=== PATIENT | female | born 1990 | race Caucasian/White ===

== ENCOUNTER 2018-07-01 21:29 | Emergency (ER) | payer SELFPAY ==
[~2018-07-01] VITALS: Ht 157.5 cm; Wt 108.9 kg
[2018-07-01 21:48] VITALS: BP 148/83
[2018-07-01] MEDS ORDERED: ACETAMINOPHEN/CODEINE 300/30MG TABLET PO ONE (22:30)
[2018-07-01] MEDS ORDERED: ACET-704 PO (22:32)
--- NOTE | 2018-07-01 22:34 | PHYS DOC ---
Past History Past Medical History: Other Past Surgical History: Tonsillectomy, Other Alcohol Use: None Drug Use: None Adult General Chief Complaint Chief Complaint: KNEE INJURY [facility] HPI Patient is a 28-year-old female who presents with complaint of injury to her right knee when she twisted her knee while going down some steps off of a deck. Patient rates her pain as moderate to severe and states the pain is worsened with weightbearing. She states that she had injured the same knee about a year ago and states that she had a meniscus injury at that time. She states that it had gotten better however. She states that the majority of the pain is medial. Review of Systems Review of Systems Constitutional: Denies fever or chills [] Respiratory: Denies cough or shortness of breath [] Cardiovascular: No additional information not addressed in HPI [] Musculoskeletal: Positive right knee pain [] Neurologic: Denies headache, focal weakness or sensory changes [] Current Medications Current Medications Current Medications Medications (Trade) Dose Ordered Sig/Eduardo Start Time Stop Time Status Last Admin Dose Admin Acetaminophen/ Codeine Phosphate (Tylenol #3) 1 tab 1X ONCE 07/01/18 22:30 07/01/18 22:31 07/01/18 22:13 1 TAB Allergies Allergies Allergies Coded Allergies Type Severity Reaction Last Updated Verified NSAIDS (Non-Steroidal Anti-Inflamma Allergy Intermediate 07/01/18 Yes Penicillins Allergy Intermediate 07/01/18 Yes tramadol Allergy Intermediate 07/01/18 Yes Physical Exam Physical Exam Constitutional: Well developed, well nourished, no acute distress, non-toxic appearance. [] Cardiovascular:Heart rate regular rhythm, no murmur [] Lungs & Thorax: Bilateral breath sounds clear to auscultation [] Extremities: Examination of right knee demonstrates tenderness to palpation along the medial joint line. Unable to fully assess ligamentous status as patient is not able to tolerate due to reported pain. [] Current Patient Data Vital Signs Vital Signs Date Time Temp Pulse Resp B/P (MAP) Pulse Ox O2 Delivery O2 Flow Rate FiO2 07/01/18 22:13 18 Room Air 07/01/18 21:48 97.6 96 97 EKG EKG [] Radiology/Procedures Radiology/Procedures [] Impressions: X-ray of the right knee demonstrates no acute bony abnormalities. Course & Med Decision Making Course & Med Decision Making Pertinent Labs and Imaging studies reviewed. (See chart for details) Patient moved to room upon arrival was evaluated by your medical staff after which an x-ray of the right knee was obtained. Upon reviewing x-ray findings were reviewed with patient. I did offer knee immobilizer with crutches for the patient but patient states that a knee immobilizer hurts her knee more. She also states that she has crutches at home. Patient is requesting an Sriram wrap. Dragon Disclaimer Dragon Disclaimer This electronic medical record was generated, in whole or in part, using a voice recognition dictation system. Departure Departure: Impression: Primary Impression: Right knee sprain Disposition: HOME, SELF-CARE Condition: STABLE Referrals: PCP,DALTON (PCP) CASEY BLAND MD Patient Instructions: Knee Sprain Additional Instructions: Utilize crutches for nonweightbearing as needed for comfort. Follow-up with orthopedist in the next week. Scripts Acetaminophen With Codeine (TYLENOL WITH CODEINE #3 TABLET) 1 Each Tablet 1 TAB PO Q6HRS PRN for PAIN, #12 TAB Prov: JAMARI SCHAFFER Jr., DO 07/01/18 Problem Qualifiers Primary Impression: Right knee sprain Encounter type: initial encounter Involved ligament of knee: unspecified ligament Qualified Codes: S83.91XA - Sprain of unspecified site of right knee , initial encounter JAMARI SCHAFFER Jr., DO Jul 01, 2018 22:34
[2018-07-01] MEDS ORDERED: diphenhydrAMINE HCL 25 MG CAPSULE PO ONE (23:00)
--- NOTE | 2018-07-01 23:42 | RAD ---
EXAM: AP, oblique and lateral views of the right knee DATE: 07/01/2018 10:08 PM INDICATION: Right knee pain after twisting today. Hx meniscus injury. Patient shielded COMPARISON: No Prior FINDINGS: No evidence of acute fracture or dislocation. Joint spaces are preserved without significant degenerative/proliferative change. No right knee joint effusion. IMPRESSION: No evidence of acute fracture or dislocation. Electronically signed by: Michael Fernando MD (07/01/2018 11:39 PM) [facility]
== END 2018-07-01 22:47 | disposition home or self-care (01) ==
LOC: ER 21:29
DX: S83.91XA Sprain of unspecified site of right knee, initial encounter (principal); Z88.6 Allergy status to analgesic agent; Z88.0 Allergy status to penicillin; X50.1XXA Overexertion from prolonged static or awkward postures, initial encounter; Y93.89 Activity, other specified; Y92.89 Other specified places as the place of occurrence of the external cause; Y99.8 Other external cause status
CPT/HCPCS: 73562; 99283; Q0163

== ENCOUNTER 2018-12-17 18:33 | Emergency (ER) | payer SELFPAY ==
[~2018-12-17] VITALS: Ht 157.5 cm; Wt 108.9 kg
[~2018-12-17 18:33] MED LIST: ACET-704 PO
[2018-12-17 18:38] VITALS: BP 134/80
[2018-12-17] MEDS ORDERED: ORPHENADRINE CITRATE 60 MG/2 ML VIAL. IM ONE (19:00)
[2018-12-17] MEDS ORDERED: ORPH-16 PO (19:08)
[2018-12-17] MEDS ORDERED: OXAP600T2 PO (19:08)
--- NOTE | 2018-12-17 19:09 | PHYS DOC ---
Past History Past Medical History: Other Additional Past Medical Histor: bulging disc Past Surgical History: Tonsillectomy, Other Smoking: Non-smoker Alcohol Use: None Drug Use: None Adult General Chief Complaint Chief Complaint: MEDICATION REFILL HPI HPI Patient is a 28-year-old female presents complaining of low back pain. She has long-standing back issues with a bulging disc at L4-5. This morning she tried to move a couch. She has had increased pain since trying to move this couch. She took Tylenol and ibuprofen without any relief. There is no radiation of the discomfort. Increased pain with moving. No trauma. No loss of bowel or bladder control. She denies using any injectable drugs of abuse. Denies any fever. She has had no significant relief with holding still. Pain is moderate to severe.[] Review of Systems Review of Systems Constitutional: Denies fever or chills [] Eyes: Denies change in visual acuity, redness, or eye pain [] HENT: Denies nasal congestion or sore throat [] Respiratory: Denies cough or shortness of breath [] Cardiovascular: No chest pain or palpitations[] GI: Denies abdominal pain, nausea, vomiting, bloody stools or diarrhea [] : Denies dysuria or hematuria [] Musculoskeletal: See history of present illness[] Integument: Denies rash or skin lesions [] Neurologic: Denies headache, focal weakness or sensory changes [] Endocrine: Denies polyuria or polydipsia [] All other systems were reviewed and found to be within normal limits, except as documented in this note. Current Medications Current Medications Current Medications Medications (Trade) Dose Ordered Sig/Eduardo Start Time Stop Time Status Last Admin Dose Admin Orphenadrine Citrate (Norflex) 60 mg 1X ONCE 12/17/18 19:00 12/17/18 19:01 UNV Allergies Allergies Allergies Coded Allergies Type Severity Reaction Last Updated Verified NSAIDS (Non-Steroidal Anti-Inflamma Allergy Intermediate 07/01/18 Yes Penicillins Allergy Intermediate 07/01/18 Yes tramadol Allergy Intermediate 07/01/18 Yes Physical Exam Physical Exam Constitutional: Well developed, well nourished, no acute distress, non-toxic appearance. [] HENT: Normocephalic, atraumatic, bilateral external ears normal, oropharynx moist, no oral exudates, nose normal. [] Eyes: PERRLA, EOMI, conjunctiva normal, no discharge. [] Neck: Normal range of motion, no tenderness, supple, no stridor. [] Cardiovascular:Heart rate regular rhythm, no murmur [] Lungs & Thorax: Bilateral breath sounds clear to auscultation [] Abdomen: Bowel sounds normal, soft, obese, no tenderness, no masses, no pulsatile masses. [] Skin: Warm, dry, no erythema, no rash. [] Back: Bilateral lumbar paraspinal muscle tenderness to palpation. Decreased active range of motion in full word bending, side bending, and rotation. These decreases are bilaterally symmetric. Normal gait. She was able to stand up more fully erect when walking. No increased discomfort when walking on heels versus normal versus tiptoes., no CVA tenderness. [] Extremities: No tenderness, no cyanosis, no clubbing, ROM intact, no edema. [] Neurologic: Alert and oriented X 3, normal motor function, normal sensory function, no focal deficits noted. [] Psychologic: Affect normal, judgement normal, mood normal. [] EKG EKG [] Radiology/Procedures Radiology/Procedures [] Course & Med Decision Making Course & Med Decision Making Pertinent Labs and Imaging studies reviewed. (See chart for details) Medical decision making: Given that there is no loss of bowel or bladder control, nor other red flags, and no trauma, imaging is not indicated at this time. We'll treat with NSAIDs despite her reported allergies and she has been able to take these. We'll also treat with muscle relaxers. She will need long- term care by her primary care team for this.[] Lucyon Disclaimer Danyell Disclaimer This electronic medical record was generated, in whole or in part, using a voice recognition dictation system. Departure Departure: Impression: Primary Impression: Low back strain Disposition: 01 HOME, SELF-CARE Condition: IMPROVED Referrals: PCP,NO (PCP) Patient Instructions: Low Back Strain with [facility] Additional Instructions: Follow-up with your regular doctor in 2 days. If you do not have a regular doctor list of local clinics will be provided for you. Return to the ER if you have loss of bowel or bladder control, fever of more than 101�, or any other concerns. Scripts Oxaprozin (OXAPROZIN) 600 Mg Tablet 600 MG PO BID for severe pain, #20 TAB Prov: ENRIQUE LOWERY 12/17/18 Orphenadrine Citrate (ORPHENADRINE CITRATE) 100 Mg Tablet.er 100 MG PO BID for BACK PAIN, #20 TAB.SR Prov: ENRIQUE LOWERY 12/17/18 Problem Qualifiers Primary Impression: Low back strain Encounter type: initial encounter Qualified Codes: S39.012A - Strain of muscle, fascia and tendon of lower back, initial encounter SEBASTIÁNENRIQUE POE Dec 17, 2018 19:08
== END 2018-12-17 19:17 | disposition home or self-care (01) ==
LOC: ER 18:33
DX: S39.012A Strain of muscle, fascia and tendon of lower back, initial encounter (principal); Z88.6 Allergy status to analgesic agent; Z88.0 Allergy status to penicillin; X50.9XXA Other and unspecified overexertion or strenuous movements or postures, initial encounter; Y92.89 Other specified places as the place of occurrence of the external cause; Y93.89 Activity, other specified; Y99.8 Other external cause status
CPT/HCPCS: 96372; 99283; J2360